=== PATIENT | female | born 1985 | race Caucasian/White ===

== ENCOUNTER 2019-07-23 01:24 | Day surgery (SDC) | payer OTHER, SELFPAY ==
[2019-07-08 10:23] VITALS: BMI 19.5
[2019-07-23] VITALS (9 sets, daily range): BP systolic 103–127; BP diastolic 58–85; PULSE 54–78; RESP 10–16; TEMP 36.3–36.8; O2SAT 99–100
--- NOTE | 2019-07-23 11:23 | WPDANESEPPF ---
Anes - Initial Pre Proc Eval Procedure: Operation Date: 07/23/19 12:30 Proposed Procedures p Bilateral Breast Augmentation - Dexter Dover MD Date/Time: 07/23/19 11:23 Surgeon: Dexter Dover MD Pre Op Diagnosis: MICROMASTIA Patient Data Age: 34 Gender: F Height: 1.7 m Weight: 56.7 kg Allergies Allergy/AdvReac Type Severity Reaction Status Date / Time No Known Allergies Allergy Unverified 07/23/19 11:09 Home Medications Medication Instructions Recorded Confirmed Type carisoprodol 350 mg tablet 350 mg PO TID PRN #21 tablet 07/20/19 07/20/19 Rx docusate sodium 100 mg capsule 100 mg PO DAILY #14 cap 07/20/19 Rx ondansetron HCl 4 mg tablet 4 mg PO Q8H #28 tablet 07/20/19 Rx oxycodone-acetaminophen 5 mg-325 1 tablet PO Q6H PRN #15 tablet 07/20/19 07/20/19 Rx mg tablet Patient hx anesthesia problems: none Family hx anesthesia problems: none [facility] Social History Social History Smoking status: Never smoker Alcohol intake: current Anes - Eval Final PreProcedure Day of Procedure 07/23/19 11:23 Patient weight: normal Heart: regular rate and rhythm Lungs: clear to auscultation and normal air movement Airway: Mallampati scale class II Neurological: alert and oriented Last oral intake: >/= 8 hours ASA classification: I Emergent: no Anesthetic plan: proceed Anesthesia type and monitoring: general LMA Informed Consent: The patient's anesthetic plan and its attendant risks and benefits were discussed with the patient/family/POA. Questions were solicited and answers provided to the satisfaction of the patient/family/POA.
[2019-07-23] MEDS: LACTATED RINGERS 1,000 ML 30 ML IV CONT ×2 (11:25→15:55)
--- NOTE | 2019-07-23 13:07 | SUR.PREOP ---
1250-PT AND INFORMED SURGEON DELAYS SELF UNDETERMINED AMT OF TIME. OFFERED PT TO SIT IN CHAIR IN ROOM OR UPRIGHT ON STRETCHER, DECLINES AT THIS TIME.
--- NOTE | 2019-07-23 13:40 | SUR.PREOP ---
1340-PT AND UPDATED WITH ADDITIONAL DELAY OF 45 MINUTES. PT REQUESTS TO BE UP IN ROOM--SCD DISCONNECTED, IV LOCKED OFF, DELMY HUGGER OFF AND PT WALKING ABOUT IN ROOM.
--- NOTE | 2019-07-23 14:10 | WPDHPUPDATE1 ---
History and Physical Update Update Date/Time: 07/23/19 14:10 History and Physical has been reviewed, including an updated exam of the patient. There are NO changes in the patient's condition. Risks, benefits, and alternatives have been discussed and questions answered. Patient agrees to proceed with procedure.
[2019-07-23] MEDS: ceFAZolin 2 GM/D5W 50 ML 2 GM/50 ML BAG IVPB (15:21)
[2019-07-23] MEDS: LIDO 1%/EPINEPHRINE 1:100,000 20 ML VIAL INFILTRATE (15:25)
--- NOTE | 2019-07-23 15:49 | P.OP_ITS ---
Procedure Note - Detailed Date of procedure: 07/23/19 Pre-op diagnosis: MICROMASTIA Post-op diagnosis: same Procedure performed: Bilateral breast augmentation Description of procedure: She is here today for bilateral breast augmentation. Previously and again today the risks, benefits, alternatives were discussed in extensive detail. I wanted her to be very realistic about the risks involved as well as expectations. We discussed aftercare and what to monitor for. Made sure answered all of her questions to her satisfaction today and consent was obtained. Marked in the preoperative holding area with their verification. The patient w as taken to the operating room placed supine on the operating table. Anesthesia was provided by anesthesiology. A surgical time-out was taken. We cleansed the skin and 1% lidocaine and 0.25% Marcaine with epinephrine was used anesthetize as a field block. She was prepped and draped in a standard sterile fashion. Tegaderm nipple De Oliveira were placed. A 15 blade used to make an incision along the inframammary fold. Dissection was continued at 45 degree angle until the chest wall as identified. I incised the pectoralis major along its inferior border and completely released the inferior border leaving the medial border intact. I created a subpectoral pocket in the appropriate dimensions based on our preoperative planning for the implant. I then copiously irrigated with saline solution and verified a strict hemostasis. Next the use a triple antibiotic and Betadine containing solution to irrigate the pocket. I washed my gloves with the triple antibiotic and Betadine solution. We washed the implant immediately upon opening it with this solution and only opened it when we needed it. On the back table I prepared the implant removing all air. It was introduced into the pocket and filled with a fill kit to the volume described. Having verified positioning of the implant this was closed using 2-0 Vicryl followed by 3-0 Monocryl in a running subcuticular 4-0 Monocryl followed by tissue glue. Fluffs, Tyson wrap, and surgical bra were placed. Patient was awoke and taken to PACU without difficulty. All instrument sponge counts were correct at the end of the case. Implants: Dual Plane I augmentation Right: REF [id number]-250 SN [id number] 250cc filled to 270 cc Left: REF 68LP-250 SN [id number] 250cc filled to 270 cc Anesthesia: GLMA Surgeon: Dexter Dover MD Estimated blood loss (mL): 10 Drains: No Packing: No Pathology: none sent Complications: No immediate complications Condition: stable Disposition: PACU
== END 2019-07-23 17:30 | disposition home or self-care (01) ==
PROVIDERS: PCP Family Medicine; Visit Provider Surgery Plastic and Reconstructive Surgery
PROC: (CPT 19325; principal; 2019-07-23 12:30)
DX: Z41.1 Encounter for cosmetic surgery (principal); N64.82 Hypoplasia of breast
CPT/HCPCS: 19325; J0131; J0690; J1100; J1580; J2250; J2405; J2704; J3010; J7030; J7120